=== PATIENT | female | born 1935 | race African-American/Black ===

== ENCOUNTER 2021-09-29 13:31 | Inpatient (IN) | payer MEDICARE ==
[~2021-09-29] VITALS: Ht 170.2 cm; Wt 69.9 kg
[2021-09-29] MEDS ORDERED: ACETAMINOPHEN WITH CODEINE 300/30MG TABLET PO ONE (14:15)
[2021-09-29 15:04] LABS: BASOPHILS % 0.2 % (0.0-2.0); EOSINOPHILS % 0.3 % (0.0-5.0); HEMATOCRIT. 42.5 % (36.0-48.0); HEMOGLOBIN. 13.2 g/dL (12.0-16.0); LYMPHOCYTES % 9.9 % (20.0-50.0); MEAN CORPUSCULAR HEMOGLOBIN 29.9 pg (28.0-32.0); MEAN CORPUSCULAR VOLUME 96.1 fL (81.0-99.0); MEAN PLATELET VOLUME 8.8 fl (7.4-10.4); MONOCYTES % 8.6 % (2.0-8.0); PLATELET 177 x1000/uL (130-400); RED BLOOD CELL COUNT 4.42 mill/uL (4.2-5.4); RED CELL DISTRIBUTION WIDTH 13.4 % (11.6-14.6)
[2021-09-29 15:11] LABS: CHLORIDE 105 mEq/L (98-107)
[2021-09-29] MEDS: LIDOCAINE 5% PATCH TOP SCH ×2 (15:33→15:39)
[2021-09-29] MEDS ORDERED: SODIUM CHLORIDE 0.9% 500 ML IV ONE (17:45)
[2021-09-29] MEDS ORDERED: ACETAMINOPHEN 325MG TABLET PO PRN (19:45)
[2021-09-29] MEDS ORDERED: GUAIFENESIN 200MG/10ML SUGAR FREE UDC PO PRN (19:45)
[2021-09-29] MEDS ORDERED: DOCUSATE SODIUM 100MG CAPSULE PO PRN (19:45)
[2021-09-29] MEDS ORDERED: ONDANSETRON HCL 4MG/2ML INJ IV PRN (19:45)
[2021-09-29] MEDS ORDERED: NALOXONE HCL 0.4MG/ML VIAL IV PRN (20:15)
[2021-09-29] MEDS: HYDROCODONE/ACETAMINOPHEN 5/325MG TABLET PO PRN (22:00)
[2021-09-29 23:00] VITALS: BP 158/77
[2021-09-30] VITALS: BP 158/77
[2021-09-30] MEDS: ENOXAPARIN 30MG/0.3ML SYR SUBCUT SCH ×2 (02:05→19:53)
[2021-09-30] MEDS: HYDROCODONE/ACETAMINOPHEN 5/325MG TABLET PO PRN ×3 (02:05→11:01)
[2021-09-30 04:00] VITALS: BP 153/75
[2021-09-30 06:01] LABS: BASOPHILS % 0.2 % (0.0-2.0); EOSINOPHILS % 0.2 % (0.0-5.0); HEMATOCRIT. 42.1 % (36.0-48.0); HEMOGLOBIN. 13.5 g/dL (12.0-16.0); LYMPHOCYTES % 10.8 % (20.0-50.0); MEAN CORPUSCULAR HEMOGLOBIN 30.5 pg (28.0-32.0); MEAN CORPUSCULAR VOLUME 95.5 fL (81.0-99.0); MONOCYTES % 7.2 % (2.0-8.0); NEUTROPHILS % 81.6 % (40.0-76.0); RED BLOOD CELL COUNT 4.41 mill/uL (4.2-5.4); RED CELL DISTRIBUTION WIDTH 13.4 % (11.6-14.6)
[2021-09-30 06:12] LABS: CHLORIDE 102 mEq/L (98-107)
[2021-09-30 08:40] VITALS: BP 151/66
[2021-09-30 12:25] VITALS: BP 133/67
[2021-09-30] MEDS ORDERED: HYDROCODONE/APAP 7.5/325MG 1 TAB TABLET PO PRN (12:30)
[2021-09-30 12:37] LABS: CREATINE KINASE 1220 IU/L (26-192)
[2021-09-30 14:02] LABS: PLATELET 157 x1000/uL (130-400)
[2021-09-30] MEDS ORDERED: IOHEXOL-300 100 ML BOTTLE ONE (14:19)
[2021-09-30] MEDS: LOSARTAN POTASSIUM 100 MG TABLET PO SCH (14:54)
[2021-09-30 15:42] VITALS: BP 129/69
[2021-09-30 20:00] VITALS: BP 164/59
[2021-09-30] MEDS ORDERED: HYDRALAZINE 20MG/ML VIAL IV PRN (21:15)
[2021-10-01] VITALS: BP 174/88
[2021-10-01 04:00] VITALS: BP 122/85
[2021-10-01] MEDS: HYDROCODONE/APAP 7.5/325MG 1 TAB TABLET PO PRN ×3 (07:08→20:36)
[2021-10-01 08:00] VITALS: BP 112/59
[2021-10-01] MEDS: LOSARTAN POTASSIUM 100 MG TABLET PO SCH (10:25)
[2021-10-01 12:00] VITALS: BP 137/72
[2021-10-01 20:00] VITALS: BP 95/52
[2021-10-01] MEDS: ENOXAPARIN 30MG/0.3ML SYR SUBCUT SCH (20:36)
[2021-10-02] VITALS: BP 120/65
[2021-10-02 04:00] VITALS: BP 125/63
[2021-10-02] MEDS: HYDROCODONE/APAP 7.5/325MG 1 TAB TABLET PO PRN ×2 (05:17→11:43)
[2021-10-02 08:00] VITALS: BP 122/60
[2021-10-02] MEDS: LOSARTAN POTASSIUM 100 MG TABLET PO SCH (08:25)
[2021-10-02 11:45] VITALS: BP 120/60
== END 2021-10-02 14:50 | disposition home or self-care (01) | DRG 185 ==
LOC: ER 13:31 → 6WST 17:08 → ENRESERV 21:05
PROVIDERS: ADMIT Hospitalist; ATTEND Hospitalist
DX: S22.42XA Multiple fractures of ribs, left side, initial encounter for closed fracture (principal); R74.01 Elevation of levels of liver transaminase levels; I10 Essential (primary) hypertension; Z90.11 Acquired absence of right breast and nipple; V89.2XXA Person injured in unspecified motor-vehicle accident, traffic, initial encounter; Y93.89 Activity, other specified; Y92.89 Other specified places as the place of occurrence of the external cause; Y99.8 Other external cause status
CPT/HCPCS: 36415; 71250; 74177; 80053; 82550; 84484; 85025; 93005; 93970; 97166; 97535; 99285; J0360; J1650; J2405; J7040; Q9967